=== PATIENT | male | born 1970 | race Caucasian/White ===

== ENCOUNTER 2018-03-09 17:15 | Outpatient (REF) | payer OTHER, SELFPAY ==
[2018-03-09 19:03] LABS: HCT 43.1 % (40.0-50.0); HGB 14.6 g/dL (13.5-17.5); Mean Corp. HGB Concentration 33.9 g/dL (32.0-36.0); Mean Corpuscular Hemoglobin 33.8 pg (27.0-33.0); Mean Corpuscular Volume 99.8 fL (80-95); Mean Platelet Volume 10.7 fL (8.0-11.0); Platelet Count 223 x1000/uL (130-400); RBC 4.32 m/cumm (4.50-6.00); RBC Distribution Width 12.7 % (11.8-14.1); White Blood Cell Count 8.35 k/cumm (4.4-10.8)
[2018-03-09 19:30] LABS: Anion Gap 8.5 mmol/L (3-11); BUN 11 mg/dL (7-18); CO2 28.5 mmol/L (21.0-32.0); CREATININE 0.75 mg/dL (0.70-1.30); Calcium 9.2 mg/dL (8.5-10.1); Chloride 101 mmol/L (98-107); Glucose 102 mg/dL (70-100); Potassium 4.7 mmol/L (3.5-5.1); Sodium 138 mmol/L (136-145); TSH (W/Ref FT4) 1.63 uIU/mL (0.358-3.74)
== END 2018-03-09 17:35 ==
LOC: NCHCN 17:15
PROVIDERS: PCP Family Medicine; Visit Provider Family Medicine
DX: R07.9 Chest pain, unspecified (principal); R00.2 Palpitations
CPT/HCPCS: 80048; 85027; 83735; 84443

== ENCOUNTER 2018-09-23 20:41 | Outpatient (REF) | payer OTHER, SELFPAY ==
[2018-09-23 20:34] LABS: Abs Immature Grans 0.01 k/cumm (0.0-0.09); Absolute Basophil Count 0.02 k/cumm (0.0-0.2); Absolute Eosinophil Count 0.19 k/cumm (0.0-0.7); Absolute Lymphocyte Count 2.12 k/cumm (1.2-3.4); Absolute Monocyte Count 0.76 k/cumm (0.11-0.7); Absolute Neutrophil Count 5.08 k/cumm (1.2-6.7); Basophils % 0.2; Eosinophils % 2.3; HCT 43.6 % (40.0-50.0); Immature Grans % 0.1; Lymphocytes % 25.9; Mean Corp. HGB Concentration 34.4 g/dL (32.0-36.0); Mean Corpuscular Hemoglobin 33.6 pg (27.0-33.0); Mean Corpuscular Volume 97.5 fL (80-95); Mean Platelet Volume 10.7 fL (8.0-11.0); Monocytes % 9.3; Neutrophils % 62.2; Platelet Count 227 x1000/uL (130-400); RBC 4.47 m/cumm (4.50-6.00); RBC Distribution Width 12.6 % (11.8-14.1); White Blood Cell Count 8.18 k/cumm (4.4-10.8)
[2018-09-27 17:19] LABS: Bartonella Henselae IgG <1:128 titer (<1:128); Bartonella Henselae IgM <1:20 titer (<1:20); Bartonella Quintana IgG <1:128 titer (<1:128); Bartonella Quintana IgM <1:20 titer (<1:20)
== END 2018-09-23 21:01 ==
LOC: NCHCN 20:41
PROVIDERS: PCP Family Medicine; Visit Provider Family Medicine
DX: R22.1 Localized swelling, mass and lump, neck (principal)
CPT/HCPCS: 85025; 86611

== ENCOUNTER 2019-05-05 12:23 | Outpatient (REF) | payer OTHER, SELFPAY ==
[2019-05-05 21:08] LABS: ALT 46 U/L (16-63); AST 22 U/L (15-37); Albumin 4.5 g/dL (3.4-5.0); Alkaline Phosphatase 108 U/L (46-116); Anion Gap 9.5 mmol/L (3-11); BUN 8 mg/dL (7-18); Bilirubin, Total 0.7 mg/dL (0.2-1.0); CO2 30.5 mmol/L (21.0-32.0); CREATININE 0.67 mg/dL (0.70-1.30); Calcium 9.2 mg/dL (8.5-10.1); Calculated LDL 95 mg/dL; Chloride 102 mmol/L (98-107); Cholesterol 172 mg/dL (<200); Glucose 83 mg/dL (74-106); HDL Cholesterol 55 mg/dL (40-60); Potassium 4.4 mmol/L (3.5-5.1); Sodium 142 mmol/L (136-145); Total Protein 7.4 g/dL (6.4-8.2); Triglyceride 110 mg/dL (<150)
[2019-05-05 21:27] LABS: COMMENT (LAB VIEW ONLY) 62.18 mg/dL; Microalb ug/mg Crea 29.9 ug/mg Cr
== END 2019-05-05 12:43 ==
LOC: NCHCN 12:23
PROVIDERS: PCP Family Medicine; Visit Provider Nurse Practitioner Family
DX: I10 Essential (primary) hypertension (principal); I25.10 Atherosclerotic heart disease of native coronary artery without angina pectoris; F10.19 Alcohol abuse with unspecified alcohol-induced disorder
CPT/HCPCS: 80053; 80061; 82043; 82570

== ENCOUNTER 2020-05-28 12:59 | Outpatient (REF) | payer OTHER, SELFPAY ==
[2020-05-28 14:05] LABS: ALT 47 U/L (16-63); AST 22 U/L (15-37); Albumin 4.3 g/dL (3.4-5.0); Alkaline Phosphatase 98 U/L (46-116); Anion Gap 6.1 mmol/L (3-11); BUN 11 mg/dL (7-18); Bilirubin, Total 0.6 mg/dL (0.2-1.0); CO2 30.9 mmol/L (21.0-32.0); CREATININE 0.8 mg/dL (0.70-1.30); Calcium 9.6 mg/dL (8.5-10.1); Chloride 102 mmol/L (98-107); Glucose 97 mg/dL (74-106); Potassium 4.6 mmol/L (3.5-5.1); Sodium 139 mmol/L (136-145); Total Protein 7.3 g/dL (6.4-8.2)
[2020-05-28 14:47] LABS: COMMENT (LAB VIEW ONLY) 158.71 mg/dL; Microalb ug/mg Crea 13.2 ug/mg Cr
== END 2020-05-28 13:00 | disposition home or self-care (01) ==
LOC: NCHCN 12:59
PROVIDERS: PCP Family Medicine; Visit Provider Nurse Practitioner Family
DX: R39.89 Other symptoms and signs involving the genitourinary system (principal); I10 Essential (primary) hypertension
CPT/HCPCS: 80053; 82043; 82570

== ENCOUNTER 2022-02-23 17:58 | Outpatient (REF) | payer OTHER, SELFPAY ==
[2022-02-23 21:19] LABS: Abs Immature Grans 0.04 10^3/uL (0.0-0.06); Absolute Basophil Count 0.05 10^3/uL (0.0-0.2); Absolute Lymphocyte Count 1.66 10^3/uL (1.2-3.4); Absolute Monocyte Count 1.06 10^3/uL (0.1-0.8); Absolute Neutrophil Count 10.09 10^3/uL (1.2-6.7); Basophils % 0.4; Eosinophils % 0.5; HCT 42.1 % (40.0-50.0); HGB 14.6 g/dL (13.5-17.5); Immature Grans % 0.3; Lymphocytes % 12.8; MCH 33.5 pg (27.0-33.0); MCHC 34.7 % (32.0-36.0); MCV 97 fL (80-95); MPV 10.5 fL (8.0-11.0); Monocytes % 8.2; Neutrophils % 77.8; Platelet Count 237 10^3/uL (130-400); RBC 4.36 10^6/uL (4.36-5.78); RDW 12.6 % (11.8-14.1); WBC 12.97 10^3/uL (4.4-10.8)
[2022-02-23 21:21] LABS: Absolute Eosinophil Count 0.06 10^3/uL (0.0-0.7); ESR 7 mm/hr (0-20)
[2022-02-23 21:34] LABS: Hemoglobin A1C 5.8 % (<5.7)
[2022-02-23 21:43] LABS: Iron 86 ug/dL (65-175); Total Iron Binding Capacity 375 ug/dL (250-450); Transferrin Sat 23 % (20-55)
[2022-02-23 22:22] LABS: Calculated LDL 74 mg/dL (<100); Cholesterol 157 mg/dL (<200); Ferritin 213 ng/mL (26-388); Folate 15.2 ng/mL (8.6-20.0); HDL Cholesterol 63 mg/dL (40-60); TSH (W/Ref FT4) 1.02 uIU/mL (0.36-3.74); Triglyceride 104 mg/dL (<150); Vitamin B12 484 pg/mL (193-986)
[2022-02-23 22:44] LABS: C-Reactive Protein < 0.05 mg/dL (0.0-0.3)
[2022-02-24 17:28] LABS: Reticulocyte Count 1.3 % (0.5-2.5)
== END 2022-02-23 17:59 | disposition home or self-care (01) ==
LOC: NCHCN 17:58
PROVIDERS: PCP Family Medicine; Visit Provider Nurse Practitioner Family
DX: Z12.11 Encounter for screening for malignant neoplasm of colon (principal); I63.9 Cerebral infarction, unspecified; E78.5 Hyperlipidemia, unspecified; I10 Essential (primary) hypertension; I25.10 Atherosclerotic heart disease of native coronary artery without angina pectoris; I65.22 Occlusion and stenosis of left carotid artery; D53.9 Nutritional anemia, unspecified
CPT/HCPCS: 80061; 85045; 85652; 82607; 82728; 82746; 83036; 83540; 83550; 84443; 85025; 86140

== ENCOUNTER 2023-05-11 13:52 | Outpatient (REF) | payer OTHER, SELFPAY ==
[2023-05-11 15:13] LABS: ALT 40 U/L (16-63); AST 24 U/L (15-37); Albumin 3.9 g/dL (3.4-5.0); Alkaline Phosphatase 124 U/L (46-116); Anion Gap 5.1 mmol/L (3-11); BUN 14 mg/dL (7-18); Bilirubin, Total 0.6 mg/dL (0.2-1.0); CO2 29.9 mmol/L (21.0-32.0); CREATININE 0.8 mg/dL (0.70-1.30); Calcium 9.3 mg/dL (8.5-10.1); Calculated LDL 82 mg/dL (<100); Chloride 104 mmol/L (98-107); Cholesterol 153 mg/dL (<200); Estimated GFR 105.17 (mL/min/1.73m2); Ferritin 186 ng/mL (26-388); Folate 18.9 ng/mL (8.6-20.0); Glucose 107 mg/dL (74-106); HDL Cholesterol 60 mg/dL (40-60); Magnesium 1.8 mg/dL (1.8-2.4); Potassium 4.8 mmol/L (3.5-5.1); Sodium 139 mmol/L (136-145); Total Protein 7.4 g/dL (6.4-8.2); Triglyceride 58 mg/dL (<150); Vitamin B12 424 pg/mL (193-986)
[2023-05-11 15:53] LABS: Hemoglobin A1C 5.7 % (<5.7)
== END 2023-05-11 13:53 | disposition home or self-care (01) ==
LOC: NCHCN 13:52
PROVIDERS: PCP Family Medicine; Visit Provider Nurse Practitioner Family
DX: Z13.6 Encounter for screening for cardiovascular disorders (principal); Z13.1 Encounter for screening for diabetes mellitus
CPT/HCPCS: 80053; 80061; 82607; 82728; 82746; 83036; 83735

== ENCOUNTER 2024-09-25 14:01 | Outpatient (REF) | payer OTHER, SELFPAY ==
[2024-09-25 15:47] LABS: ALT 79 U/L (16-63); AST 30 U/L (15-37); Albumin 4.1 g/dL (3.4-5.0); Alkaline Phosphatase 148 U/L (46-116); Anion Gap 5.1 mmol/L (3-11); BUN 10 mg/dL (7-18); Bilirubin, Total 0.6 mg/dL (0.2-1.0); CO2 31.9 mmol/L (21.0-32.0); CREATININE 0.7 mg/dL (0.70-1.30); Calcium 9.4 mg/dL (8.5-10.1); Chloride 103 mmol/L (98-107); Estimated GFR 108.14 (mL/min/1.73m2); Glucose 98 mg/dL (74-106); Potassium 4.4 mmol/L (3.5-5.1); Sodium 140 mmol/L (136-145); Total Protein 7.5 g/dL (6.4-8.2)
== END 2024-09-25 14:02 | disposition home or self-care (01) ==
LOC: NCHCN 14:01
PROVIDERS: PCP Family Medicine; Visit Provider Family Medicine
DX: R10.9 Unspecified abdominal pain (principal)
CPT/HCPCS: 80053

== ENCOUNTER 2024-11-06 09:19 | Outpatient (REF) | payer OTHER, SELFPAY ==
[2024-11-06 15:06] LABS: HCT 43.0 % (40.0-50.0); HGB 14.7 g/dL (13.5-17.5); MCH 33.6 pg (27.0-33.0); MCHC 34.2 % (32.0-36.0); MCV 98 fL (80-95); MPV 10.9 fL (8.0-11.0); Platelet Count 216 10^3/uL (130-400); RBC 4.37 10^6/uL (4.36-5.78); RDW 13.0 % (11.8-14.1); RDW-SD 47.2 fL; WBC 9.04 10^3/uL (4.4-10.8)
[2024-11-06 15:24] LABS: Iron 89 ug/dL (65-175); Total Iron Binding Capacity 323 ug/dL (250-450); Transferrin Sat 28 % (20-55)
[2024-11-06 15:51] LABS: ALT 30 U/L (16-63); AST 21 U/L (15-37); Albumin 3.5 g/dL (3.4-5.0); Alkaline Phosphatase 127 U/L (46-116); Anion Gap 5.3 mmol/L (3-11); BUN 9 mg/dL (7-18); Bilirubin, Total 0.4 mg/dL (0.2-1.0); CO2 29.7 mmol/L (21.0-32.0); Calcium 9.1 mg/dL (8.5-10.1); Calculated LDL 85 mg/dL (<100); Chloride 105 mmol/L (98-107); Cholesterol 157 mg/dL (<200); Estimated GFR 113.29 (mL/min/1.73m2); Ferritin 81 ng/mL (26-388); Glucose 97 mg/dL (74-106); HDL Cholesterol 59 mg/dL (>or=40); Potassium 4.3 mmol/L (3.5-5.1); Sodium 140 mmol/L (136-145); Total Protein 6.9 g/dL (6.4-8.2); Triglyceride 69 mg/dL (<150)
[2024-11-06 16:12] LABS: Lipase 16 U/L (<78)
[2024-11-07 09:56] LABS: Hepatitis A Antibody IgM Negative (Negative); Hepatitis C Ab w Rflx HCV PCR Negative (Negative)
== END 2024-11-06 09:20 | disposition home or self-care (01) ==
LOC: NCHCN 09:19
PROVIDERS: PCP Family Medicine; Visit Provider Nurse Practitioner Family
DX: R10.9 Unspecified abdominal pain (principal); R74.8 Abnormal levels of other serum enzymes; E78.5 Hyperlipidemia, unspecified
CPT/HCPCS: 80053; 80061; 83690; 85027; 86704; 86709; 86803; 87340; 82728; 83540; 83550

== ENCOUNTER 2025-02-05 10:20 | Outpatient (REF) | payer OTHER, SELFPAY ==
[2025-02-05 15:11] LABS: Calculated LDL 71 mg/dL (<100); Cholesterol 150 mg/dL (<200); HDL Cholesterol 51 mg/dL (>or=40); Hemoglobin A1C 5.7 % (<5.7); Triglyceride 144 mg/dL (<150)
[2025-02-06 22:12] LABS: PSA, Screening 11.4 ng/mL (<=3.5)
[2025-02-07 10:32] LABS: HIV-1/2 Ag & Ab Screen Negative (Negative)
== END 2025-02-05 10:21 | disposition home or self-care (01) ==
LOC: NCHCN 10:20
PROVIDERS: PCP Family Medicine; Visit Provider Nurse Practitioner Family
DX: F10.10 Alcohol abuse, uncomplicated (principal); Z12.5 Encounter for screening for malignant neoplasm of prostate; E78.5 Hyperlipidemia, unspecified; R73.03 Prediabetes; Z11.4 Encounter for screening for human immunodeficiency virus [HIV]
CPT/HCPCS: 80061; 84153; 87389; 83036

== ENCOUNTER 2025-03-19 21:18 | Outpatient (REF) | payer OTHER, SELFPAY ==
[2025-03-19 23:09] LABS: PSA, Screening 13.9 ng/mL (<=3.5)
== END 2025-03-19 21:19 | disposition home or self-care (01) ==
LOC: NCHCN 21:18
PROVIDERS: PCP Family Medicine; Visit Provider Nurse Practitioner Family
DX: Z12.5 Encounter for screening for malignant neoplasm of prostate (principal)
CPT/HCPCS: 84153